=== PATIENT | female | born 1955 | race Caucasian/White ===

== ENCOUNTER → 2021-07-03 | Outpatient (CLI) | payer OTHER ==
[~2021-07-03] MED LIST: CALCIUM 500 +1 EAC5 PO; COLACE100 MG PO; COMPAZINE10 M1 PO; DIAZEPAM 5 MG5 M1 PO; DIAZEPAM 5 MG5 MG PO; FISH OIL 1,001000 M2 PO; FISH OIL 1,4001 EACH PO; FLEXERIL PO; HYDROCODONE-AP1 EAC6 PO; IBUPROFEN 600600 M1 PO; LEVSIN PO; LOPRESSOR25 PO; MECLIZINE 25 MG25 M1 PO; NEXIUM20 MG PO; NEXIUM40 MG PO; NORCO 5-325 TA1 EACH PO; ONDANSETRON HCL4 M2 PO; TOPROL XL25 MG PO; TUMS PO; ULTRACET TABLET1 TAB PO; ZOFRAN ODT4 MG DISSOLVE; ZOFRAN ODT4 MG PO
== END ==
LOC: CAT 11:56
PROVIDERS: ATTEND Internal Medicine Cardiovascular Disease
DX: Z13.6 Encounter for screening for cardiovascular disorders (principal); I25.10 Atherosclerotic heart disease of native coronary artery without angina pectoris; E78.00 Pure hypercholesterolemia, unspecified

== ENCOUNTER → 2021-08-06 | Outpatient (CLI) | payer OTHER | LOC: SJCVCIMAG 07:46 | PROVIDERS: ATTEND Internal Medicine Cardiovascular Disease | DX: R09.89 Other specified symptoms and signs involving the circulatory and respiratory systems (principal); E78.5 Hyperlipidemia, unspecified; I10 Essential (primary) hypertension; I77.819 Aortic ectasia, unspecified site; R07.9 Chest pain, unspecified; R06.00 Dyspnea, unspecified; R94.31 Abnormal electrocardiogram [ECG] [EKG]; R53.83 Other fatigue; R11.0 Nausea ==